=== PATIENT | male | born 1965 | race Caucasian/White ===

== ENCOUNTER 2018-01-31 11:23 | Inpatient (IN) | payer BC, OTHER ==
[2018-01-31 12:26] LABS: BASO % 0.5 % (0-2.0); EOS % 0.5 % (0-4.5); HEMATOCRIT 43.6 % (35.4-49); HEMOGLOBIN 14.4 GM/dL (11.7-16.9); LYMPH % 13.8 % (8-40); MCH 28.8 pg (25.7-33.7); MEAN CELL VOLUME 87.4 fl (80-96); MONO % 3.3 % (3.8-10.2); NEUT % 81.9 % (42.8-82.8); PLATELET COUNT 209 K/MM3 (134-434); RBC 4.99 M/mm3 (4.00-5.60); RDW 13.4 % (11.9-15.9); WHITE BLOOD COUNT 7.6 K/mm3 (4.0-10.0)
--- NOTE | 2018-01-31 12:31 | PDOC ---
History of Present Illness - General Chief Complaint: Syncope/Near Syncope Stated Complaint: NEAR SYNCOPE/SYNCOPE Time Seen by Provider: 01/31/18 11:54 History Source: Patient Exam Limitations: No Limitations - History of Present Illness Initial Comments: 01/31/18 12:31 53 yo M with a hx of aortic ascending aneurysm (stable per Dr. Estevez; 4.1- 4.2cm; last surveillance Dec 2017) and spinal stenosis (corrective surgery lumbar 4 years ago) presents to the emergency department s/p syncopal episode at 8:15 am. Per the patient's at bedside, he was fine in the morning got up to use bathroom walked back and LOC event falling forward into the bed. He was out for 1 minute and looked pale without head trauma. Per the patient, he denies palpitations, chest pain, nausea, vomiting, headaches, visual changes, and abdominal pain prior to the syncopal episodes and "possibly lightheaded". The patient's denies seizure like tremors. After sitting him up in bed, he syncopized 30 minutes later and had another syncopal event in bed, totaling 3 today. The patient is followed by Dr. Estevez for his aortic aneurysm. He states he hasn't syncopized since 2013 when he was initially diagnosed with the aortic aneurysm. Denies the following: fevers, SOB, dysuria, hematuria, diarrhea , hematochezia, and leg pain/swelling. No recent travels, hx of PE/DVT, recent immobilizations, recent surgeries, and use of hormones. Past History - Past Medical History Allergies/Adverse Reactions: Allergies Allergy/AdvReac Type Severity Reaction Status Date / Time shellfish derived Allergy Severe Difficulty Verified 01/31/18 22:22 Breathing Home Medications: Ambulatory Orders Metoprolol Succinate [Toprol XL -] 25 mg PO DAILY #0 tab.sr.24h 01/25/12 COPD: No Other medical history: enlarged aorta - Surgical History Cholecystectomy: Yes - Immunization History Immunization Up to Date: Yes - Suicide/Smoking/Psychosocial Hx Smoking Status: No Smoking History: Never smoked Number of Cigarettes Smoked Daily: 0 Hx Alcohol Use: No Drug/Substance Use Hx: No Review of Systems - Review of Systems Able to Perform ROS?: Yes Is the patient limited German proficient: No Constitutional: Yes: Weakness. No: Chills, Diaphoresis, Fever HEENTM: No: Blurred Vision, Recent change in vision, Ear Pain, Nose Pain, Throat Pain, Mouth Pain Respiratory: No: Cough, Shortness of Breath, Hemoptysis Cardiac (ROS): Yes: Lightheadedness. No: Chest Pain, Palpitations, Syncope, Chest Tightness ABD/GI: Yes: Nausea, Vomiting. No: Constipated, Diarrhea, Poor Appetite, Poor Fluid Intake, Rectal Bleeding, Tarry Stools : No: Burning, Dysuria, Hematuria, Urgency Musculoskeletal: No: Back Pain, Joint Pain, Neck Pain Integumentary: No: Erythema, Lumps, Pallor, Pruritus Neurological: No: Headache, Numbness, Tremors, Weakness, Ataxia, Dizziness Psychiatric: No: Frequent Crying Endocrine: No: Unexplained Weight Loss Hematologic/Lymphatic: No: Anemia *Physical Exam - Vital Signs Last Vital Signs Temp Pulse Resp BP Pulse Ox 97.3 F L 70 18 123/72 97 01/31/18 11:32 01/31/18 11:32 01/31/18 11:32 01/31/18 11:32 01/31/18 11:32 - Physical Exam General Appearance: Yes: Nourished, Appropriately Dressed. No: Apparent Distress, Intoxicated HEENT: positive: EOMI, BOLA, Normal Voice, Symmetrical, Hearing Grossly Normal. negative: Pale Conjunctivae, Scleral Icterus (R), Scleral Icterus (L), Muffled /Hoarse voice, Nasal Congestion, Sinus Tenderness, Excessive drooling Neck: positive: Trachea midline. negative: Tender, Lymphadenopathy (R), Lymphadenopathy (L), Tender lateral, Tender midline Respiratory/Chest: positive: Lungs Clear, Normal Breath Sounds. negative: Chest Tender, Respiratory Distress, Accessory Muscle Use, Crackles, Rales, Rhonchi, Stridor, Wheezing Cardiovascular: positive: Regular Rhythm, Regular Rate, S1, S2. negative: Systolic Murmur Gastrointestinal/Abdominal: positive: Normal Bowel Sounds, Flat, Soft. negative : Tender, Distended, Rebound Lymphatic: negative: Adenopathy Musculoskeletal: positive: Normal Inspection. negative: CVA Tenderness, Vertebral Tenderness Extremity: positive: Normal Capillary Refill, Normal Inspection, Normal Range of Motion. negative: Tender Integumentary: positive: Normal Color, Dry, Warm. negative: Clammy, Diaphoresis , Rash, Swelling Neurologic: positive: blankmaker II-XII NML intact, Fully Oriented, Alert, Normal Mood/ Affect, Normal Response, Motor Strength 5/5. negative: EOM Palsy, Facial Droop , Sensory Deficit Moderate Sedation - Procedure Monitoring Vital Signs: Procedure Monitoring Vital Signs Temperature 97.3 F L 01/31/18 11:32 Pulse Rate 70 01/31/18 11:32 Respiratory Rate 18 01/31/18 11:32 Blood Pressure 123/72 01/31/18 11:32 O2 Sat by Pulse Oximetry (%) 97 01/31/18 11:32 Heart Score/ECG Review - ECG Intrepretation Comment:: 02/01/18 16:[address] elevations or depressions noted on EKG. no arrhythmia. ventricular rate is 70 bpm. ED Treatment Course - LABORATORY CBC & Chemistry Diagram: 02/02/18 06:30 02/02/18 06:30 Medical Decision Making - Medical Decision Making 53 yo M with a hx of aortic ascending aneurysm (stable per Dr. Estevez; 4.1- 4.2cm; last surveillance Dec 2017) and spinal stenosis (corrective surgery lumbar 4 years ago) presents to the emergency department s/p syncopal episode at 8:15 am Initial vitals: Initial Vital Signs Temp Pulse Resp BP Pulse Ox 97.3 F L 70 18 123/72 97 01/31/18 11:32 01/31/18 11:32 01/31/18 11:32 01/31/18 11:32 01/31/18 11:32 work up: syncope (vasovagal vs neurological (Seizure vs TIA vs CVA vs mass effect?) vs cardiogenic (arrhythmia) vs vascular (carotid stenosis vs hypovolemia 2/2 nausea ). CTA will be ordered to assess status of the aortic aneurysm. last time he has syncopal episodes was 2 years ago when he had his initial syncope event that ultimately led to the diagnosis of the aortic aneurysm. Laboratory Tests 01/31/18 01/31/18 01/31/18 12:17 12:17 15:13 WBC 7.6 RBC 4.99 Hgb 14.4 Hct 43.6 MCV 87.4 MCH 28.8 MCHC 33.0 RDW 13.4 Plt Count 209 MPV 8.0 Absolute Neuts (auto) 6.2 Neutrophils % 81.9 D Lymphocytes % 13.8 D Monocytes % 3.3 L Eosinophils % 0.5 Basophils % 0.5 Nucleated RBC % 0 Sodium 140 Potassium 4.5 Chloride 106 Carbon Dioxide 26 Anion Gap 7 L BUN 13 Creatinine 0.8 Creat Clearance w eGFR > 60 POC Glucometer [id number] Random Glucose 144 H Calcium 8.1 L Total Bilirubin 0.4 AST 19 ALT 23 Alkaline Phosphatase 62 Troponin I < 0.02 Total Protein 6.5 Albumin 3.7 TSH 1.20 Free T4 0.91 CTA of the chest shows no evidence of aortic dissection or aneurysm. Mild dilatation of the main pulmonary artery trunk with no evidence of pulmonary artery emboli. The patient was having nausea and vomiting in the department and given 1 L of NS and 4 mg of zofran. The patient had a syncopal event while in the department. he stated he felt lightheaded while sitting up and when he laid down he had a LOC. He awoke within 1 minute with diaphoresis and nausea and vomiting. he was mentating A&O x3 and was able to move all extremities x4 spontaneously. In addition, he did not have shaking when he had the LOC. glucose meter did not show hypoglycemia and repeat EKG was unchanged from previous. given unclear etiology of his syncopal events (neurogenic vs cardiogenic?) will admit for further work up. Dispo: Admit *DC/Admit/Observation/Transfer Diagnosis at time of Disposition: Syncope Qualifiers: Syncope type: unspecified Qualified Code(s): R55 - Syncope and collapse - Referrals - Patient Instructions - Post Discharge Activity
[2018-01-31 12:54] LABS: ALBUMIN 3.7 g/dl (3.4-5.0); ALK PHOS 62 U/L (45-117); ANION GAP 7 MMOL/L (8-16); BILIRUBIN,TOTAL 0.4 mg/dL (0.2-1); BLOOD UREA NITROGEN 13 mg/dL (7-18); CALCIUM 8.1 mg/dL (8.5-10.1); CHLORIDE 106 mmol/L (98-107); CO2 26 mmol/L (21-32); CREATININE 0.8 mg/dL (0.55-1.3); GLUCOSE,RANDOM 144 mg/dL (74-106); POTASSIUM 4.5 mmol/L (3.5-5.1); SGOT/AST 19 U/L (15-37); SGPT/ALT 23 U/L (13-61); SODIUM 140 mmol/L (136-145); TOT PROT 6.5 g/dl (6.4-8.2)
[2018-01-31] MEDS ORDERED: ONDANSETRON 4 MG/2 ML VIAL IVPUSH ONE ×2 (12:55→15:20)
[2018-01-31] MEDS ORDERED: SODIUM CHLORIDE 1,000 ML IV STA (12:55)
[2018-01-31] MEDS ORDERED: ONDANSETRON 4 MG/2 ML VIAL ONE ×2 (13:14→15:21)
--- NOTE | 2018-01-31 14:00 | EKG ---
Test Reason : Blood Pressure : / mmHG Vent. Rate : 070 BPM Atrial Rate : 070 BPM P-R Int : 188 ms QRS Dur : 106 ms QT Int : 406 ms P-R-T Axes : 059 046 032 degrees QTc Int : 438 ms NORMAL SINUS RHYTHM NORMAL ECG WHEN COMPARED WITH ECG OF 23-JAN-2012 08:22, NO SIGNIFICANT CHANGE WAS FOUND Confirmed by JOHNSON SPRINGER MD ([id number]) on 01/31/2018 1:59:58 PM Referred By: Confirmed By:JOHNSON SPRINGER MD
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
[2018-01-31] MEDS ORDERED: SODIUM CHLORIDE 500 ML IV STA (15:20)
--- NOTE | 2018-01-31 15:58 | ECHO ---
Name: MAC LA Exam:Adult Echocardiogram Study Date: 01/31/2018 03:22 PM Age: 53 yrs Reason For Study: SYNCOPE Height: 69 in Weight: 190 lb BSA: 2.0 m2 MMode/2D Measurements & Calculations IVSd: 0.94 cm Ao root diam: 3.8 cm LVIDd: 5.5 cm LA dimension: 3.5 cm LVIDs: 3.4 cm LVPWd: 1.0 cm EDV(Teich): 145.3 ml LVOT diam: 2.6 cm ESV(Teich): 47.0 ml TAPSE: 1.5 cm RV S Antonio: 13.6 cm/sec Doppler Measurements & Calculations MV E max antonio: 76.6 cm/sec Med Peak E' Antonio: 11.2 cm/sec MV A max antonio: 74.2 cm/sec Med E/e': 6.8 MV E/A: 1.0 Lat Peak E' Antonio: 10.8 cm/sec Lat E/e': 7.1 Procedure A complete two-dimensional transthoracic echocardiogram was performed (2D, M-mode, Doppler and color flow Doppler). Left Ventricle The left ventricular size, thickness and function are normal. The left ventricular ejection fraction is normal. Ejection Fraction = 60-65%. The left ventricular wall motion is normal. Right Ventricle The right ventricle is normal in size and function. Atria Normal left and right atrial size and function. The interatrial septum is intact with no evidence for an atrial septal defect. Mitral Valve There is no mitral regurgitation noted. Tricuspid Valve There is trace tricuspid regurgitation. Aortic Valve The aortic valve is trileaflet. No hemodynamically significant valvular aortic stenosis. No aortic regurgitation is present. Pulmonic Valve There is no pulmonic valvular regurgitation. Great Vessels Mild aortic root dilatation. Pericardium/Pleura There is no pericardial effusion. Interpretation Summary The left ventricular size, thickness and function are normal The right ventricle is normal in size and function. There is trace tricuspid regurgitation. Mild aortic root dilatation. MD Merritt Reynolds 01/31/2018 03:58 PM
--- NOTE | 2018-01-31 17:19 | CON.NEURO ---
Consult Consult Specialty:: Rickie Referred by:: ER - History of Present Illness History of Present Illness: 53-year-old man originally from [facility] with present medical history significant for Osteoarthritis Chronic low back pain Spinal stenosis Aortic aneurysm under the care of cardiology Patient was at his usual status of health until yesterday when he was at home and he describes sudden onset of feeling dizzyWith loss of consciousness no seizure-like activity no eyes rolled back no tongue biting no urinary incontinence patient was able to come back patient had another episode before the ambulance was called in the emergency room patient was evaluated stepwise CAT scan of the head was done. Patient was neurologically stable with no focality patient had another episode in the emergency room. Patient did not need any benzodiazepine to come around. No chest pain or palpitation. Mild headache after mild postictal confusion. No other associated symptoms of cranial nerve findings. There is no family history of seizure disorders no recent travel there is no head trauma. - History Source History Provided By: Patient Limitations to Obtaining History: No Limitations - Alcohol/Substance Use Hx Alcohol Use: No - Smoking History Smoking history: Never smoked Aproximately how many cigarettes per day: 0 Home Medications - Allergies Allergies/Adverse Reactions: Allergies Allergy/AdvReac Type Severity Reaction Status Date / Time shellfish derived Allergy Severe Difficulty Verified 01/31/18 22:22 Breathing - Home Medications Home Medications: Ambulatory Orders Metoprolol Succinate [Toprol XL -] 25 mg PO DAILY #0 tab.sr.24h 01/25/12 Family Disease History - Family Disease History Family History: Denies (no seizure) Review of Systems - Review of Systems Constitutional: reports: No Symptoms Eyes: reports: No Symptoms HENT: reports: No Symptoms Neurological: reports: No Symptoms Physical Exam-Neuro Vital Signs: Vital Signs Temperature 97.3 F L 01/31/18 11:32 Pulse Rate 66 01/31/18 13:12 Respiratory Rate 17 01/31/18 13:12 Blood Pressure 119/68 01/31/18 13:12 O2 Sat by Pulse Oximetry (%) 98 01/31/18 13:12 Labs: CBC, BMP 01/31/18 12:17 01/31/18 12:17 - Neuro Exam Level Of Consciousness: Yes: Oriented to Person, Oriented to Place, Oriented to Time Eyes: Yes: PERRLA Speech: WNL Dominant Hand: Right Cranial Nerves II-XII Intact: Yes Gag: Present DTR's: 1+ Left Bicep, 1+ Right Bicep, 1+ Left Brachioradialis, 1+ Right Brachioradialis Response to light touch: Normal Response to pain prick: Normal Response to temperature: Normal Response to vibration: Normal Motor Strength: 3/5: Left Arm, Right Arm, Left Leg, Right Leg Gait: Deferred Imaging - Results Cat Scan: Image Reviewed Problem List - Problems (1) Syncope Assessment/Plan: the context of the syncopal event speaks very highly of either vasovagal or cardiac arrhythmia to be determined doubt this is a seizure given the new associated symptoms and doubt this is TIA giving no cranial nerve findings. Neurological examination is within the normal. Neurological differential diagnoses 1 syncope most probably vasovagal repeated questionable source. #2 rule out cardiac arrhythmia. 1. Agree to plan to admit to monitor. 2. Seizure precautions. 3. MRI of the brain with no contrast. 4. EEG. 5. No antiseizure medication. 6. Follow-up with cardiology regarding the Holter monitor. Thank you very much for letting me to be part of this patient neurological examination Code(s): R55 - SYNCOPE AND COLLAPSE Qualifiers: Syncope type: unspecified Qualified Code(s): R55 - Syncope and collapse
[2018-01-31] MEDS ORDERED: ACETAMINOPHEN 325 MG TABLET (FP) PO PRN (19:44)
[2018-01-31] MEDS ORDERED: LACTATED RINGERS SOLUTION 1000 ML INFUS.BAG IV ONE (20:00)
--- NOTE | 2018-01-31 22:23 | HP ---
Admitting History and Physical - Admission Chief Complaint: syncope x 3 episodes History of Present Illness: 53 year old male, with a significant PMH of aortic aneurysm, spinal stenosis s/ p laminectomy?, presents to the emergency department for evaluation after experiencing three syncopal episodes at home. Mr Helms reports being in his usual state of health, until this morning when he was looking down at "some papers" and began to feel dizzy. He walked towards his bed and had a syncopal episode, witnessed by his , landing face down on his bed. He regained consciousness after ~ 20 seconds. Patient decided to get into bed and while sitting up 30min, he experienced another syncopal episode, followed by a third shortly thereafter. Pt reports over the last 15months he has been experiencing malaise, night sweats and was concerned due to his brother passing from lymphoma. He underwent an extensive w/u including bone marrow biopsy, all of which were negative. His symptoms have improved slightly over the last few months, but he does continues to experience intermittent night sweats and malaise. He denies CP/SOB/palpitations, + nausea and dizziness. Pt has never experienced these symptoms prior. He currently takes toprol 25mg daily to control BP and HR for his aortic dissection, which he stopped two days ago due to the holidays and not wanting to take meds during this time period. He Denies any new medications, recent illness or infections. His most recent internation travel was oct 2017 to [place]. In ED his vitals were stable. His EKG was nonischemic her troponin was negative a CTA of his chest abdomen pelvis demonstrates no acute or active dissection or aneurysm. Given multitude of syncopal events without clear vagal etiology observe for cardiac and neuro consultation, to determine further management. History Source: Patient, Significant Other Limitations to Obtaining History: No Limitations - Past Medical History FIELD STAFF: Yes: Peripheral Neuropathy, Syncope Cardiovascular: Yes: Aneurysm Musculoskeletal: Yes: Chronic low back pain - Past Surgical History Past Surgical History: Yes: Cholecystectomy, Colonoscopy, Laminectomy Additional Past Surgical History: right foot drop correction Left ACL repair Right rotator cuff repair perianal nerve repair - Smoking History Smoking history: Never smoked Have you smoked in the past 12 months: No Aproximately how many cigarettes per day: 0 - Alcohol/Substance Use Hx Alcohol Use: No History of Substance Use: reports: None - Social History Usual Living Arrangement: Yes: With Spouse, With Child ADL: Independent Occupation: partially retired History of Recent Travel: Yes ([place] october 2017) Home Medications - Allergies Allergies/Adverse Reactions: Allergies Allergy/AdvReac Type Severity Reaction Status Date / Time shellfish derived Allergy Severe Difficulty Verified 01/31/18 22:22 Breathing - Home Medications Home Medications: Ambulatory Orders Metoprolol Succinate [Toprol XL -] 25 mg PO DAILY #0 tab.sr.24h 01/25/12 Family Disease History - Family Disease History Family Disease History: Other: Father ( (72) lung cancer 2/2 tobacco use ), Mother (Alive ( 75) Polymyalgia rheumatica, hypothyroidism) Review of Systems - Review of Systems Constitutional: reports: Malaise, Night Sweats, Weakness Musculoskeletal: reports: Decreased ROM, Muscle Weakness Neurological: reports: Parasthesia, Weakness Physical Examination Vital Signs: Vital Signs Temperature 97.9 F 01/31/18 21:24 Pulse Rate 73 01/31/18 21:24 Respiratory Rate 18 01/31/18 21:24 Blood Pressure 115/61 01/31/18 21:24 O2 Sat by Pulse Oximetry (%) 96 01/31/18 21:24 Constitutional: Yes: Well Nourished, No Distress, Calm Eyes: Yes: Conjunctiva Clear, EOM Intact, PERRL HENT: Yes: Atraumatic, Normocephalic Neck: Yes: Supple, Trachea Midline Cardiovascular: Yes: Regular Rate and Rhythm Respiratory: Yes: Regular, CTA Bilaterally Gastrointestinal: Yes: Normal Bowel Sounds, Soft ...Rectal Exam: Yes: Deferred Musculoskeletal: Yes: Back Pain, Muscle Pain Extremities: Yes: WNL Edema: No Peripheral Pulses WNL: Yes Peripheral Pulses: Left Radial: 2+, Right Radial: 2+, Left Doralis Pedis: 2+, Right Dorsalis Pedis: 2+ Integumentary: Yes: WNL Neurological: Yes: Alert, Oriented ...Motor Strength: LLE (decreased 3/5), RLE (decreased 3/5) Psychiatric: Yes: Alert, Oriented Labs: CBC, BMP 01/31/18 12:17 01/31/18 12:17 Imaging - Results X-ray: Report Reviewed (CXR 01/31: no acute pathology) Cat Scan: Report Reviewed (Head CT 01/31: Negative exam), Other (CTA chest and abdomen 01/31/2018 Impression: no evidence of aortic dissection or aneurysm. Main dilatation of the main pulmonary artery trunk with no evidence of pulmonary artery emboli. s/p cholecystectomy, mild splenomegaly.) Ultrasound: Report Reviewed (carotid doppler 01/31: Vertebral arteries appear patent, no evidence of high grade carotid artery stenois) EKG: Report Reviewed (EKG 01/31/2018 NSR. VR 70bpm, ZINA 188ms, QTc 438ms, QRS 106ms.) Problem List - Problems (1) Prophylactic measure Assessment/Plan: bed rest overnight senna and colace bowel regimen heparin SC BID DISPO: Full code Code(s): Z29.9 - ENCOUNTER FOR PROPHYLACTIC MEASURES, UNSPECIFIED (2) Syncope Assessment/Plan: neuro consulted neuro check [id number] continuous telemetry cardiology following echo wnl. CTA no dissection or aneurysm Code(s): R55 - SYNCOPE AND COLLAPSE Qualifiers: Syncope type: unspecified Qualified Code(s): R55 - Syncope and collapse Visit type - Emergency Visit Emergency Visit: Yes ED Registration Date: 01/31/18 Care time: The patient presented to the Emergency Department on the above date and was hospitalized for further evaluation of their emergent condition. - New Patient This patient is new to me today: Yes Date on this admission: 01/31/18 - Critical Care Critical Care patient: No
[2018-01-31] MEDS: SENNOSIDES 8.6MG TABLET (FP) PO SCH (22:50)
[2018-01-31] MEDS: DOCUSATE SODIUM 100 MG CAPSULE (FP) PO SCH (22:51)
[2018-01-31] MEDS: HEPARIN NA (PORCINE) 5,000 UNITS/ML 1ML VIAL SQ SCH (22:55)
[2018-01-31 23:48] VITALS: BMI 29.0
[2018-02-01 07:00] LABS: BASO % 0.3 % (0-2.0); EOS % 1.6 % (0-4.5); HEMOGLOBIN 14.5 GM/dL (11.7-16.9); LYMPH % 27.1 % (8-40); MCH 29.2 pg (25.7-33.7); MCHC 33.6 g/dl (32.0-35.9); MEAN CELL VOLUME 86.9 fl (80-96); MEAN PLT VOLUME 8.2 fl (7.5-11.1); MONO % 7.3 % (3.8-10.2); NEUT % 63.7 % (42.8-82.8); PLATELET COUNT 226 K/MM3 (134-434); RBC 4.95 M/mm3 (4.00-5.60); RDW 13.7 % (11.9-15.9); WHITE BLOOD COUNT 8.7 K/mm3 (4.0-10.0)
[2018-02-01 08:07] LABS: ANION GAP 6 MMOL/L (8-16); BLOOD UREA NITROGEN 11 mg/dL (7-18); CALCIUM 8.3 mg/dL (8.5-10.1); CHLORIDE 107 mmol/L (98-107); CHOLESTEROL 194 mg/dL (50-200); CO2 28 mmol/L (21-32); CREATININE 0.8 mg/dL (0.55-1.3); GLUCOSE,RANDOM 87 mg/dL (74-106); HDL CHOLESTEROL 41 mg/dL (40-60); MAGNESIUM 2.1 mg/dL (1.8-2.4); POTASSIUM 4.1 mmol/L (3.5-5.1); SODIUM 141 mmol/L (136-145); TRIGLYCERIDES 125 mg/dL (0-150)
--- NOTE | 2018-02-01 09:02 | CON.CARD ---
Cardiology Consult (text) - Consultation Consultation Note: Consult Dictated IMP: Syncope vs Seizure Hx Mildly dilated ascending aorta REC: 1. Tele 2. Neuro eval Will follow.
--- NOTE | 2018-02-01 09:55 | CONS ---
CARDIOLOGY CONSULTATION DATE OF CONSULTATION: DATE OF DICTATION: 02/01/2018 REASON FOR CONSULTATION: The consultation is requested by Dr. Roque for syncope. HISTORY OF PRESENT ILLNESS: The patient is my office patient. He is a 53-year-old male with a history of stable, mild thoracic aortic aneurysm of 4.2 cm, nonobstructive coronary disease, who presented to the ER for evaluation of 3 episodes of loss of consciousness which occurred at home. He denied antecedent chest pain, shortness of breath, palpitations, PND, orthopnea. This is his first episode. He denies recent air travel. Denies recent viral illnesses, cough, fever, diarrhea or volume depletion. He did not lose continence. PAST MEDICAL HISTORY: Is as above. ALLERGIES: SHELLFISH. ACTIVE MEDICATIONS: Include Tylenol 650 p.o. q.6 p.r.n., Colace 100 mg p.o. b.i.d., subcutaneous heparin for DVT prophylaxis, and senna. At home, he was also taking Toprol XL of 25 mg daily for his ascending aortic aneurysm and blood pressure control. FAMILY HISTORY: Noncontributory. SOCIAL HISTORY: He is a nonsmoker. PHYSICAL EXAMINATION: Vital Signs: Afebrile. Alert and oriented. Temperature 98.1, blood pressure 123/61. Initial blood pressure on presentation 123/72. Oxygen saturation is 97 on room air. Eyes: He is anicteric. Neck: No bruits. Heart: S1-2, regular. No murmurs. Chest: Clear. Abdomen: Soft. Nontender. Extremities: No edema. Neurologic: Grossly nonfocal. Telemetry thus far unremarkable. His electrocardiogram normal sinus rhythm at 70 beats per minute, QTc 438, SC interval 188. LABORATORIES: CBC was normal. Basic metabolic panel was normal. Troponin was negative x4 sets. Head CT was unremarkable. Carotid duplex was unremarkable. Chest and abdomen CTA showed mild dilatation of the ascending aorta 3.8 cm with no dissection and no evidence of pulmonary embolism. Echocardiogram performed yesterday also showed normal LV function, and mildly dilated ascending aorta measuring 3.8 cm, otherwise ejection fraction 60% to 65% with normal RV size and function. IMPRESSION: Syncope versus seizure. RECOMMENDATIONS: 1. Observation on telemetry. 2. Neurology evaluation. 3. Will decrease Toprol to 12.5 mg daily while observing on telemetry. Further recommendations pending above. BLAZE ROJO M.D. [id number]
[2018-02-01] MEDS: metoPROLOL SUCCINATE 25 MG TAB.SR.24H (FP) PO SCH (10:00)
[2018-02-01] MEDS: DOCUSATE SODIUM 100 MG CAPSULE (FP) PO SCH ×2 (10:01→22:12)
[2018-02-01] MEDS: HEPARIN NA (PORCINE) 5,000 UNITS/ML 1ML VIAL SQ SCH ×2 (10:01→22:12)
--- NOTE | 2018-02-01 16:30 | PN ---
Physical Exam: SUBJECTIVE: Patient seen and examined at the bedside. Patient concerned over syncopal episodes and fear of having another episode. States he had 3 syncopal episodes at home with LOC. Also had one down in the ED on admission. Verbalizes feelings of dizziness with standing. Last time patient felt this way was when he was diagnosed with Lymes disease, 8 years ago. He required IV doxyclinie infusions at at time for apx 3 months. OBJECTIVE: vitals pre and post w/o change. continue to repeat and monitor patient had EEG today, MRI of head ordered and pending lyme titer pending Vital Signs Period Temp Pulse Resp BP Sys/Baird Pulse Ox Last 24 Hr 97.9 F-98.3 F 64-76 18-20 107-135/61-70 96-97 GENERAL: The patient is awake, alert, and fully oriented, in no acute distress. HEAD: Normal with no signs of trauma. EYES: PERRL, extraocular movements intact, sclera anicteric, conjunctiva clear. No ptosis. ENT: Ears normal, nares patent, oropharynx clear without exudates, moist mucous membranes. NECK: Trachea midline, full range of motion, supple. LUNGS: Breath sounds equal, clear to auscultation bilaterally, no wheezes, no crackles HEART: Regular rate and rhythm, nsr ABDOMEN: Soft, nontender, nondistended, normoactive bowel sounds EXTREMITIES: 2+ pulses, warm, well-perfused, no edema. NEUROLOGICAL:Normal speech, gait not observed. PSYCH: Normal mood, normal affect. SKIN: Warm, dry, normal turgor, no rashes or lesions noted Laboratory Results - last 24 hr 01/31/18 01/31/18 02/01/18 19:46 20:15 05:30 WBC 8.7 RBC 4.95 Hgb 14.5 Hct 43.0 MCV 86.9 MCH 29.2 MCHC 33.6 RDW 13.7 Plt Count 226 MPV 8.2 Absolute Neuts (auto) 5.5 Neutrophils % 63.7 D Lymphocytes % 27.1 D Monocytes % 7.3 D Eosinophils % 1.6 D Basophils % 0.3 Nucleated RBC % 0 Sodium Potassium Chloride Carbon Dioxide Anion Gap BUN Creatinine Creat Clearance w eGFR Random Glucose Hemoglobin A1c % Calcium Magnesium Creatine Kinase 78 75 Troponin I < 0.02 < 0.02 Triglycerides Cholesterol Total LDL Cholesterol HDL Cholesterol Rheumatoid Factor 02/01/18 02/01/18 02/01/18 05:30 05:30 05:30 WBC RBC Hgb Hct MCV MCH MCHC RDW Plt Count MPV Absolute Neuts (auto) Neutrophils % Lymphocytes % Monocytes % Eosinophils % Basophils % Nucleated RBC % Sodium 141 Potassium 4.1 Chloride 107 Carbon Dioxide 28 Anion Gap 6 L BUN 11 Creatinine 0.8 Creat Clearance w eGFR > 60 Random Glucose 87 Hemoglobin A1c % 5.3 Calcium 8.3 L Magnesium 2.1 Creatine Kinase 70 Troponin I < 0.02 Triglycerides 125 Cholesterol 194 Total LDL Cholesterol 130 H HDL Cholesterol 41 Rheumatoid Factor < 10.0 Active Medications Generic Name Dose Route Start Last Admin Trade Name Freq PRN Reason Stop Dose Admin Acetaminophen 650 mg 01/31/18 19:44 01/31/18 22:51 Tylenol - PO 650 mg Q6H PRN Administration FEVER Docusate Sodium 100 mg 01/31/18 22:00 02/01/18 10:01 Colace - PO 100 mg BID JOHNSON Administration Heparin Sodium (Porcine) 5,000 unit 01/31/18 22:00 02/01/18 10:01 Heparin - SQ 5,000 unit BID JOHNSON Administration Metoprolol Succinate 12.5 mg 02/01/18 10:00 02/01/18 10:00 Toprol Xl - PO 12.5 mg DAILY JOHNSON Administration Senna 2 tab 01/31/18 22:00 01/31/18 22:50 Senna - PO 2 tab HS JOHNSON Administration ASSESSMENT/PLAN: Patient is a 53 year old male, with a significant PMH of aortic aneurysm, spinal stenosis s/p laminectomy and 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 He presents to the ED on 01/31/2018 after he experienced three syncopal episodes at home with LOC loss. He also had another syncopal episode in the ED when speaking with his family, pt noted to have a syncopal episode in the hospital bed by ER staff. In ED his EKG was nonischemic, troponin was negative and a CTA of his chest abdomen pelvis demonstrates no acute or active dissection or aneurysm. Given multitude of syncopal events without clear vagal etiology observe for cardiac and neuro consultation, to determine further management. imaging done between 01/31-02/01/2018: echo: mild mr, mild aortic dilatation carotid doppler: negative brain mri: negative EEG: pending abd cta: no evidence of aortic dissection or aneurysm. mild dilatation of the main pulm. artery. no evidence of pulm. artery emboli. Neuro: Syncope and collapse Unknown etiology Head ct and brain mri negative troponins negative to date EEG pending Echo shows only mild mr and mild aortic dilatation orthostatics normal No changes on heart monitoring Lymes titers pending hmga1c stable at 5.3 multiple imaging noted above negative for acute process Card: Aortic aneurysm Followed by cardiology outpatient with routine 6 month screenings fen no ivf,tolerating PO monitor electrolytes low salt diet prophy ambulatory full code Visit type - Emergency Visit Emergency Visit: Yes ED Registration Date: 01/31/18 Care time: The patient presented to the Emergency Department on the above date and was hospitalized for further evaluation of their emergent condition. - New Patient This patient is new to me today: Yes Date on this admission: 02/01/18 - Critical Care Critical Care patient: No - Discharge Referral Referred to [facility] No
--- NOTE | 2018-02-01 19:09 | EKG ---
Test Reason : Blood Pressure : / mmHG Vent. Rate : 063 BPM Atrial Rate : 063 BPM P-R Int : 178 ms QRS Dur : 102 ms QT Int : 396 ms P-R-T Axes : 060 029 021 degrees QTc Int : 405 ms NORMAL SINUS RHYTHM NORMAL ECG WHEN COMPARED WITH ECG OF 31-JAN-2018 11:49, NO SIGNIFICANT CHANGE WAS FOUND Confirmed by DEANNA CUMMINS MD ([id number]) on 02/01/2018 7:08:59 PM Referred By: TORY CELIS Confirmed By:DEANNA CUMMINS MD
--- NOTE | 2018-02-01 19:14 | EKG ---
Test Reason : Blood Pressure : / mmHG Vent. Rate : 072 BPM Atrial Rate : 072 BPM P-R Int : 184 ms QRS Dur : 108 ms QT Int : 398 ms P-R-T Axes : 068 046 010 degrees QTc Int : 435 ms POOR DATA QUALITY, INTERPRETATION MAY BE ADVERSELY AFFECTED NORMAL SINUS RHYTHM NORMAL ECG WHEN COMPARED WITH ECG OF 31-JAN-2018 11:49, NO SIGNIFICANT CHANGE WAS FOUND Confirmed by PLACIDO MIN, DEANNA ([id number]) on 02/01/2018 7:13:57 PM Referred By: Confirmed By:DEANNA CUMMINS MD
[2018-02-01] MEDS: SENNOSIDES 8.6MG TABLET (FP) PO SCH (22:12)
[2018-02-02 08:01] LABS: BASO % 0.7 % (0-2.0); EOS % 4.2 % (0-4.5); HEMATOCRIT 39.8 % (35.4-49); HEMOGLOBIN 14.2 GM/dL (11.7-16.9); LYMPH % 34.9 % (8-40); MCH 30.9 pg (25.7-33.7); MCHC 35.7 g/dl (32.0-35.9); MEAN CELL VOLUME 86.5 fl (80-96); MEAN PLT VOLUME 8.5 fl (7.5-11.1); MONO % 7.3 % (3.8-10.2); NEUT % 52.9 % (42.8-82.8); PLATELET COUNT 211 K/MM3 (134-434); WHITE BLOOD COUNT 6.3 K/mm3 (4.0-10.0)
[2018-02-02 09:42] LABS: ALBUMIN 3.5 g/dl (3.4-5.0); ANION GAP 8 MMOL/L (8-16); BILIRUBIN,TOTAL 0.3 mg/dL (0.2-1); BLOOD UREA NITROGEN 15 mg/dL (7-18); CALCIUM 7.9 mg/dL (8.5-10.1); CHLORIDE 107 mmol/L (98-107); CO2 27 mmol/L (21-32); CREATININE 0.9 mg/dL (0.55-1.3); GLUCOSE,RANDOM 86 mg/dL (74-106); MAGNESIUM 2.1 mg/dL (1.8-2.4); POTASSIUM 3.9 mmol/L (3.5-5.1); SGOT/AST 22 U/L (15-37); SODIUM 142 mmol/L (136-145); TOT PROT 5.9 g/dl (6.4-8.2)
[2018-02-02 09:43] LABS: ALK PHOS 63 U/L (45-117); SGPT/ALT 44 U/L (13-61)
[2018-02-02] MEDS: metoPROLOL SUCCINATE 25 MG TAB.SR.24H (FP) PO SCH (10:48)
[2018-02-02] MEDS: DOCUSATE SODIUM 100 MG CAPSULE (FP) PO SCH ×2 (10:48→22:04)
[2018-02-02] MEDS: HEPARIN NA (PORCINE) 5,000 UNITS/ML 1ML VIAL SQ SCH ×2 (10:49→22:03)
--- NOTE | 2018-02-02 12:22 | CON.CARD ---
Cardiology Consult (text) - Consultation Consultation Note: Subjective: --No events overnight --Denies any lh, dizziness, chest pain or palpitations Objective: Vital Signs 02/02/18 02/02/18 02/02/18 06:00 09:00 10:45 Temperature 97.7 F Pulse Rate 61 Pulse Rate [ 73 Right side Sitting] Pulse Rate [ 74 Right side Standing] Pulse Rate [ 68 Right side Supine] Respiratory 18 16 Rate Blood Pressure 103/56 L Blood Pressure 127/73 [Right side Sitting] Blood Pressure 127/65 [Right side Standing] Blood Pressure 132/67 [Right side Supine] O2 Sat by Pulse 98 Oximetry (%) Gen: well appearing male sitting upright in NAD HEENT: NC/AT. OP Clear, MMM Cardiac: S1/S2 no murmurs Pulm: clear breath sounds bilaterally Ext: WWP. No edema Labs: reviewed. Active Medications Acetaminophen (Tylenol -) 650 mg PO Q6H PRN PRN Reason: FEVER Last Admin: 01/31/18 22:51 Dose: 650 mg Docusate Sodium (Colace -) 100 mg PO BID [facility] Last Admin: 02/02/18 10:48 Dose: 100 mg Heparin Sodium (Porcine) (Heparin -) 5,000 unit SQ BID [facility] Last Admin: 02/02/18 10:49 Dose: 5,000 unit Metoprolol Succinate (Toprol Xl -) 12.5 mg PO DAILY [facility] Last Admin: 02/02/18 10:48 Dose: 12.5 mg Senna (Senna -) 2 tab PO HS [facility] Last Admin: 02/01/18 22:12 Dose: Not Given A/P: 53 year old male with hx of nonobstructive CAD presents with 3 episodes of syncope- cardiology evaluated for further management. Unremarkable workup including echocardiogram, carotid and telemetry without events. MRI negative, EEG pending. Of note, patient states with walking hallways he feels very fatigue and did not pass out but felt lethargic. Given 4 episodes of syncope without prodrome, will evaluate with nuclear stress test on Sunday. Please keep NPO on Sunday evening for stress test on Sunday. Osmany Burks MD
--- NOTE | 2018-02-02 15:54 | PN ---
Progress Note, Physician History of Present Illness: events noted and chart reviewed No episode of syncope and near-syncope patient's at the bedside Patient complains of right arm numbness which is old. Patient was evaluated by cardiology patient still for stress test MRI of the brain revealed no evidence of acute pathology. - Current Medication List Current Medications: Active Medications Acetaminophen (Tylenol -) 650 mg PO Q6H PRN PRN Reason: FEVER Last Admin: 01/31/18 22:51 Dose: 650 mg Docusate Sodium (Colace -) 100 mg PO BID [facility] Last Admin: 02/02/18 10:48 Dose: 100 mg Heparin Sodium (Porcine) (Heparin -) 5,000 unit SQ BID [facility] Last Admin: 02/02/18 10:49 Dose: 5,000 unit Metoprolol Succinate (Toprol Xl -) 12.5 mg PO DAILY [facility] Last Admin: 02/02/18 10:48 Dose: 12.5 mg Senna (Senna -) 2 tab PO HS [facility] Last Admin: 02/01/18 22:12 Dose: Not Given - Objective Vital Signs: Vital Signs Temperature 97.9 F 02/02/18 14:00 Pulse Rate 63 02/02/18 14:00 Respiratory Rate 20 02/02/18 14:00 Blood Pressure 128/67 02/02/18 14:00 O2 Sat by Pulse Oximetry (%) 98 02/02/18 09:00 Constitutional: Yes: Well Nourished Eyes: Yes: WNL HENT: Yes: WNL Neurological: Yes: Alert, Oriented, Babinski negative ...Motor Strength: WNL Labs: CBC, BMP 02/02/18 06:30 02/02/18 06:30 Problem List - Problems (1) Syncope Assessment/Plan: vasovagal syncope associated with vomiting the day of the syncope Rule out cardiac arrhythmia EEG is negative MRI with no stroke 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 Follow-up with cardiology regarding the stress test Code(s): R55 - SYNCOPE AND COLLAPSE Qualifiers: Syncope type: unspecified Qualified Code(s): R55 - Syncope and collapse
--- NOTE | 2018-02-02 16:52 | PN ---
Physical Exam: SUBJECTIVE: Patient seen and examined at the bedside. Ambulating the hallways. wants to go home. discussed importance of completing workup. will need stress test in a.m. OBJECTIVE: Vital Signs Period Temp Pulse Resp BP Sys/Baird Pulse Ox Last 24 Hr 97.7 F-98.8 F 61-74 16-20 103-132/56-73 98-98 GENERAL: The patient is awake, alert, and fully oriented, in no acute distress. HEAD: Normal with no signs of trauma. EYES: PERRL, extraocular movements intact, sclera anicteric, conjunctiva clear. No ptosis. ENT: Ears normal, nares patent, oropharynx clear without exudates, moist mucous membranes. NECK: Trachea midline, full range of motion, supple. LUNGS: Breath sounds equal, clear to auscultation bilaterally, no wheezes, no crackles HEART: Regular rate and rhythm, nsr ABDOMEN: Soft, nontender, nondistended, normoactive bowel sounds EXTREMITIES: 2+ pulses, warm, well-perfused, no edema. NEUROLOGICAL:Normal speech, gait not observed. PSYCH: Normal mood, normal affect. SKIN: Warm, dry, normal turgor, no rashes or lesions noted Laboratory Results - last 24 hr 02/01/18 02/02/18 02/02/18 05:30 06:30 06:30 WBC 6.3 RBC 4.60 Hgb 14.2 Hct 39.8 MCV 86.5 MCH 30.9 MCHC 35.7 RDW 14.0 Plt Count 211 MPV 8.5 Absolute Neuts (auto) 3.3 Neutrophils % 52.9 Lymphocytes % 34.9 D Monocytes % 7.3 Eosinophils % 4.2 D Basophils % 0.7 Nucleated RBC % 0 Sodium 142 Potassium 3.9 Chloride 107 Carbon Dioxide 27 Anion Gap 8 BUN 15 Creatinine 0.9 Creat Clearance w eGFR > 60 Random Glucose 86 Calcium 7.9 L Magnesium 2.1 Total Bilirubin 0.3 AST 22 ALT 44 Alkaline Phosphatase 63 Total Protein 5.9 L Albumin 3.5 Lyme Screen IgG & IgM <0.91 Lyme IgM Quantitation <0.80 Active Medications Generic Name Dose Route Start Last Admin Trade Name Freq PRN Reason Stop Dose Admin Acetaminophen 650 mg 01/31/18 19:44 01/31/18 22:51 Tylenol - PO 650 mg Q6H PRN Administration FEVER Docusate Sodium 100 mg 01/31/18 22:00 02/02/18 10:48 Colace - PO 100 mg BID JOHNSON Administration Heparin Sodium (Porcine) 5,000 unit 01/31/18 22:00 02/02/18 10:49 Heparin - SQ 5,000 unit BID JOHNSON Administration Metoprolol Succinate 12.5 mg 02/01/18 10:00 02/02/18 10:48 Toprol Xl - PO 12.5 mg DAILY JOHNSON Administration Senna 2 tab 01/31/18 22:00 02/01/18 22:12 Senna - PO Not Given HS JOHNSON ASSESSMENT/PLAN: Patient is a 53 year old male, with a significant PMH of aortic aneurysm, spinal stenosis s/p laminectomy and 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 He presents to the ED on 01/31/2018 after he experienced three syncopal episodes at home with LOC loss. He also had another syncopal episode in the ED when speaking with his family, pt noted to have a syncopal episode in the hospital bed by ER staff. In ED his EKG was nonischemic, troponin was negative and a CTA of his chest abdomen pelvis demonstrates no acute or active dissection or aneurysm. Given multitude of syncopal events without clear vagal etiology observe for cardiac and neuro consultation, to determine further management. imaging done between 01/31-02/01/2018: echo: mild mr, mild aortic dilatation carotid doppler: negative brain mri: negative EEG: negative (discussed with dr. borges) abd cta: no evidence of aortic dissection or aneurysm. mild dilatation of the main pulm. artery. no evidence of pulm. artery emboli. Neuro: Syncope and collapse Unknown etiology Head ct and brain mri negative troponins negative to date EEG negative Echo shows only mild mr and mild aortic dilatation orthostatics normal No changes on heart monitoring Lymes titers pending hmga1c stable at 5.3 multiple imaging noted above negative for acute process Card: Aortic aneurysm Followed by cardiology outpatient with routine 6 month screenings Patient for stress testing on sunday fen no ivf,tolerating PO monitor electrolytes low salt diet prophy ambulatory full code Visit type - Emergency Visit Emergency Visit: Yes ED Registration Date: 01/31/18 Care time: The patient presented to the Emergency Department on the above date and was hospitalized for further evaluation of their emergent condition. - New Patient This patient is new to me today: No - Critical Care Critical Care patient: No - Discharge Referral Referred to [facility] No
[2018-02-02] MEDS: SENNOSIDES 8.6MG TABLET (FP) PO SCH (22:03)
[2018-02-03 07:12] LABS: BASO % 0.6 % (0-2.0); EOS % 4.3 % (0-4.5); HEMATOCRIT 42.3 % (35.4-49); HEMOGLOBIN 14.1 GM/dL (11.7-16.9); LYMPH % 36.7 % (8-40); MCH 29.1 pg (25.7-33.7); MCHC 33.4 g/dl (32.0-35.9); MEAN CELL VOLUME 87.1 fl (80-96); MEAN PLT VOLUME 7.9 fl (7.5-11.1); MONO % 8.5 % (3.8-10.2); NEUT % 49.9 % (42.8-82.8); PLATELET COUNT 195 K/MM3 (134-434); RBC 4.86 M/mm3 (4.00-5.60); RDW 13.5 % (11.9-15.9); WHITE BLOOD COUNT 5.9 K/mm3 (4.0-10.0)
[2018-02-03 07:46] LABS: ALBUMIN 3.5 g/dl (3.4-5.0); ALK PHOS 54 U/L (45-117); ANION GAP 6 MMOL/L (8-16); BILIRUBIN,TOTAL 0.6 mg/dL (0.2-1); BLOOD UREA NITROGEN 13 mg/dL (7-18); CALCIUM 8.6 mg/dL (8.5-10.1); CHLORIDE 105 mmol/L (98-107); CO2 28 mmol/L (21-32); CREATININE 0.8 mg/dL (0.55-1.3); GLUCOSE,RANDOM 90 mg/dL (74-106); MAGNESIUM 2.1 mg/dL (1.8-2.4); POTASSIUM 3.9 mmol/L (3.5-5.1); SGOT/AST 15 U/L (15-37); SGPT/ALT 38 U/L (13-61); SODIUM 139 mmol/L (136-145); TOT PROT 6.2 g/dl (6.4-8.2)
--- NOTE | 2018-02-03 09:41 | PN ---
Progress Note (short form) - Note Progress Note: Subjective: --No events overnight --Denies any lh, dizziness, chest pain or palpitations Objective: Vital Signs 02/03/18 02/03/18 02:00 06:00 Temperature 97.5 F L 97.6 F Pulse Rate 61 63 Respiratory 18 18 Rate Blood Pressure 115/66 117/62 Gen: well appearing male sitting upright in NAD HEENT: NC/AT. OP Clear, MMM Cardiac: S1/S2 no murmurs Pulm: clear breath sounds bilaterally Ext: WWP. No edema Labs: reviewed. Active Medications Acetaminophen (Tylenol -) 650 mg PO Q6H PRN PRN Reason: FEVER Last Admin: 01/31/18 22:51 Dose: 650 mg Docusate Sodium (Colace -) 100 mg PO BID [facility] Last Admin: 02/02/18 22:04 Dose: 100 mg Heparin Sodium (Porcine) (Heparin -) 5,000 unit SQ BID [facility] Last Admin: 02/02/18 22:03 Dose: 5,000 unit Metoprolol Succinate (Toprol Xl -) 12.5 mg PO DAILY [facility] Last Admin: 02/02/18 10:48 Dose: 12.5 mg Senna (Senna -) 2 tab PO HS [facility] Last Admin: 02/02/18 22:03 Dose: 2 tab Tele review- PVC couplet. A/P: 53 year old male with hx of nonobstructive CAD presents with 4 episodes of syncope- cardiology evaluated for further management. Unremarkable workup including echocardiogram, carotid and telemetry without events. MRI negative, EEG negative. Of note, patient states with walking hallways he feels very fatigue and lethargic. Given 4 episodes of syncope without prodrome, will evaluate with nuclear stress test on Sunday. Please keep NPO on Sunday evening for stress test on Sunday. If negative, consider 14 day event monitor or ILR placement by EP. Osmany Burks MD
[2018-02-03] MEDS: HEPARIN NA (PORCINE) 5,000 UNITS/ML 1ML VIAL SQ SCH ×2 (10:30→22:16)
[2018-02-03] MEDS: DOCUSATE SODIUM 100 MG CAPSULE (FP) PO SCH ×2 (10:30→22:16)
[2018-02-03] MEDS: metoPROLOL SUCCINATE 25 MG TAB.SR.24H (FP) PO SCH (10:30)
--- NOTE | 2018-02-03 10:47 | PN ---
Physical Exam: SUBJECTIVE: Patient seen and examined at the bedside. reports feeling slightly dizzy this morning. denies any other symptoms. OBJECTIVE: npo at midgh for stress test in a.m. Vital Signs Period Temp Pulse Resp BP Sys/Baird Pulse Ox Last 24 Hr 97.4 F-98.0 F 61-72 16-20 115-135/62-87 99 GENERAL: The patient is awake, alert, and fully oriented, in no acute distress. HEAD: Normal with no signs of trauma. EYES: PERRL, extraocular movements intact, sclera anicteric, conjunctiva clear. No ptosis. ENT: Ears normal, nares patent, oropharynx clear without exudates, moist mucous membranes. NECK: Trachea midline, full range of motion, supple. LUNGS: Breath sounds equal, clear to auscultation bilaterally, no wheezes, no crackles HEART: Regular rate and rhythm, nsr ABDOMEN: Soft, nontender, nondistended, normoactive bowel sounds EXTREMITIES: 2+ pulses, warm, well-perfused, no edema. NEUROLOGICAL:Normal speech, gait not observed. PSYCH: Normal mood, normal affect. SKIN: Warm, dry, normal turgor, no rashes or lesions noted Laboratory Results - last 24 hr 02/01/18 02/03/18 02/03/18 05:30 06:15 06:15 WBC 5.9 RBC 4.86 Hgb 14.1 Hct 42.3 MCV 87.1 MCH 29.1 MCHC 33.4 RDW 13.5 Plt Count 195 MPV 7.9 Absolute Neuts (auto) 2.9 Neutrophils % 49.9 Lymphocytes % 36.7 Monocytes % 8.5 Eosinophils % 4.3 Basophils % 0.6 Nucleated RBC % 0 Sodium 139 Potassium 3.9 Chloride 105 Carbon Dioxide 28 Anion Gap 6 L BUN 13 Creatinine 0.8 Creat Clearance w eGFR > 60 Random Glucose 90 Calcium 8.6 Magnesium 2.1 Total Bilirubin 0.6 AST 15 ALT 38 Alkaline Phosphatase 54 Total Protein 6.2 L Albumin 3.5 BERTRAM Screen Negative Lyme Screen IgG & IgM <0.91 Lyme IgM Quantitation <0.80 Active Medications Generic Name Dose Route Start Last Admin Trade Name Freq PRN Reason Stop Dose Admin Acetaminophen 650 mg 01/31/18 19:44 01/31/18 22:51 Tylenol - PO 650 mg Q6H PRN Administration FEVER Docusate Sodium 100 mg 01/31/18 22:00 02/03/18 10:30 Colace - PO 100 mg BID JOHNSON Administration Heparin Sodium (Porcine) 5,000 unit 01/31/18 22:00 02/03/18 10:30 Heparin - SQ 5,000 unit BID JOHNSON Administration Metoprolol Succinate 12.5 mg 02/01/18 10:00 02/03/18 10:30 Toprol Xl - PO 12.5 mg DAILY JOHNSON Administration Senna 2 tab 01/31/18 22:00 02/02/18 22:03 Senna - PO 2 tab HS JOHNSON Administration ASSESSMENT/PLAN: Patient is a 53 year old male, with a significant PMH of aortic aneurysm, spinal stenosis s/p laminectomy and 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 He presents to the ED on 01/31/2018 after he experienced three syncopal episodes at home with LOC loss. He also had another syncopal episode in the ED when speaking with his family, pt noted to have a syncopal episode in the hospital bed by ER staff. imaging done between 01/31-02/01/2018: echo: mild mr, mild aortic dilatation carotid doppler: negative brain mri: negative EEG: negative (discussed with dr. borges) abd cta: no evidence of aortic dissection or aneurysm. mild dilatation of the main pulm. artery. no evidence of pulm. artery emboli. Neuro: Syncope and collapse Unknown etiology Head ct and brain mri negative troponins negative to date EEG negative Echo shows only mild mr and mild aortic dilatation orthostatics normal No changes on heart monitoring Lymes titers pending hmga1c stable at 5.3 multiple imaging noted above negative for acute process Card: Aortic aneurysm Followed by cardiology outpatient with routine 6 month screenings Patient for stress testing on sunday fen no ivf,tolerating PO monitor electrolytes low salt diet prophy ambulatory full code Visit type - Emergency Visit Emergency Visit: Yes ED Registration Date: 01/31/18 Care time: The patient presented to the Emergency Department on the above date and was hospitalized for further evaluation of their emergent condition. - New Patient This patient is new to me today: No - Critical Care Critical Care patient: No - Discharge Referral Referred to [facility] No
[2018-02-03] MEDS: SENNOSIDES 8.6MG TABLET (FP) PO SCH (22:16)
[2018-02-04 09:26] LABS: BASO % 0.9 % (0-2.0); EOS % 4.1 % (0-4.5); HEMATOCRIT 42.9 % (35.4-49); HEMOGLOBIN 14.3 GM/dL (11.7-16.9); LYMPH % 30.4 % (8-40); MCH 29.1 pg (25.7-33.7); MCHC 33.3 g/dl (32.0-35.9); MEAN CELL VOLUME 87.4 fl (80-96); MEAN PLT VOLUME 7.8 fl (7.5-11.1); MONO % 7.9 % (3.8-10.2); NEUT % 56.7 % (42.8-82.8); PLATELET COUNT 207 K/MM3 (134-434); RBC 4.91 M/mm3 (4.00-5.60); RDW 13.6 % (11.9-15.9)
[2018-02-04 10:06] LABS: ALBUMIN 3.4 g/dl (3.4-5.0); ALK PHOS 56 U/L (45-117); ANION GAP 4 MMOL/L (8-16); BILIRUBIN,TOTAL 0.4 mg/dL (0.2-1); BLOOD UREA NITROGEN 16 mg/dL (7-18); CALCIUM 8.5 mg/dL (8.5-10.1); CHLORIDE 106 mmol/L (98-107); CO2 29 mmol/L (21-32); CREATININE 0.9 mg/dL (0.55-1.3); GLUCOSE,RANDOM 88 mg/dL (74-106); MAGNESIUM 2.1 mg/dL (1.8-2.4); POTASSIUM 4.2 mmol/L (3.5-5.1); SGOT/AST 16 U/L (15-37); SGPT/ALT 39 U/L (13-61); SODIUM 140 mmol/L (136-145); TOT PROT 6.2 g/dl (6.4-8.2)
--- NOTE | 2018-02-04 11:13 | PN ---
Progress Note, Physician Chief Complaint: Events noted Not in distress Coverage for Dr. Estevez History of Present Illness: Patient was seen and examined. Awake and alert. Chart was reviewed Denies chest pain, SOB or palpitations - Current Medication List Current Medications: Active Medications Acetaminophen (Tylenol -) 650 mg PO Q6H PRN PRN Reason: FEVER Last Admin: 01/31/18 22:51 Dose: 650 mg Docusate Sodium (Colace -) 100 mg PO BID [facility] Last Admin: 02/03/18 22:16 Dose: 100 mg Heparin Sodium (Porcine) (Heparin -) 5,000 unit SQ BID [facility] Last Admin: 02/03/18 22:16 Dose: 5,000 unit Metoprolol Succinate (Toprol Xl -) 12.5 mg PO DAILY [facility] Last Admin: 02/03/18 10:30 Dose: 12.5 mg Senna (Senna -) 2 tab PO HS [facility] Last Admin: 02/03/18 22:16 Dose: 2 tab - Objective Vital Signs: Vital Signs Temperature 97.9 F 02/04/18 05:00 Pulse Rate 67 02/04/18 05:00 Respiratory Rate 18 02/04/18 05:00 Blood Pressure 113/67 02/04/18 05:00 O2 Sat by Pulse Oximetry (%) 99 02/03/18 21:00 Eyes: Yes: PERRL HENT: Yes: Atraumatic Neck: Yes: Supple Cardiovascular: Yes: Regular Rate and Rhythm Respiratory: Yes: CTA Bilaterally Gastrointestinal: Yes: Normal Bowel Sounds, Soft. No: Tenderness Edema: No Additional Findings/Remarks: - Review of Systems Constitutional: denies: Chills, Fever Cardiovascular: denies: Palpitations. denies: Chest Pain, Shortness of Breath Respiratory: denies: Cough, Hemoptysis, Orthopnea, PND, SOB, SOB on Exertion Gastrointestinal: denies: Abdominal Pain, Melena, Nausea, denies: Rectal Bleeding, Vomiting Genitourinary: denies: Dysuria, Hematuria Musculoskeletal: denies: Back Pain, Joint Pain Neurological: denies: Dizziness. denies: Change in Speech, Headache, Numbness, Parasthesia, Seizure, Syncope Labs: CBC, BMP 02/04/18 08:50 02/04/18 08:50 Problem List - Problems (1) CAD (coronary artery disease) Code(s): I25.10 - ATHSCL HEART DISEASE OF [place] CORONARY ARTERY W/O ANG PCTRS (2) PVC (premature ventricular contraction) Code(s): I49.3 - VENTRICULAR PREMATURE DEPOLARIZATION (3) Syncope Code(s): R55 - SYNCOPE AND COLLAPSE Qualifiers: Syncope type: unspecified Qualified Code(s): R55 - Syncope and collapse Assessment/Plan 1. CAD, non-obstructive, angina 2. Syncope, etiology unclear 3. PVCs PLAN: 1. Nuclear MPI today 2. If above negative, consider ILR as outpatient vs. external MCOT monitor as outpatient 3. Tilt table testing can also be considered 4. Continue Metoprolol for now Further plans are to follow Koby Tariq MD
[2018-02-04] MEDS: metoPROLOL SUCCINATE 25 MG TAB.SR.24H (FP) PO SCH (13:57)
[2018-02-04] MEDS: HEPARIN NA (PORCINE) 5,000 UNITS/ML 1ML VIAL SQ SCH (13:58)
[2018-02-04] MEDS: DOCUSATE SODIUM 100 MG CAPSULE (FP) PO SCH (13:59)
[2018-02-04 15:02] VITALS: TEMP 98
[2018-02-04 16:59] VITALS: BP 116/70; PULSE 60
--- NOTE | 2018-02-04 17:04 | DS ---
Physical Exam: SUBJECTIVE: Patient seen and examined. at bedside. Patient to be discharged home with close follow up with his pattern technician. OBJECTIVE: stress test with small area of ischemia, discussed with patient follow up with Dr. Estevez outpatient Started on Lipitor Vital Signs Period Temp Pulse Resp BP Sys/Baird Pulse Ox Last 24 Hr 97.8 F-98.1 F 60-68 17-18 113-124/60-76 99-99 PHYSICAL EXAM GENERAL: The patient is awake, alert, and fully oriented, in no acute distress. HEAD: Normal with no signs of trauma. EYES: PERRL, extraocular movements intact, sclera anicteric, conjunctiva clear. No ptosis. ENT: Ears normal, nares patent, oropharynx clear without exudates, moist mucous membranes. NECK: Trachea midline, full range of motion, supple. LUNGS: Breath sounds equal, clear to auscultation bilaterally, no wheezes, no crackles HEART: Regular rate and rhythm, nsr ABDOMEN: Soft, nontender, nondistended, normoactive bowel sounds EXTREMITIES: 2+ pulses, warm, well-perfused, no edema. NEUROLOGICAL:Normal speech, gait not observed. PSYCH: Normal mood, normal affect. SKIN: Warm, dry, normal turgor, no rashes or lesions noted LABS Laboratory Results - last 24 hr 02/04/18 02/04/18 08:50 08:50 WBC 6.0 RBC 4.91 Hgb 14.3 Hct 42.9 MCV 87.4 MCH 29.1 MCHC 33.3 RDW 13.6 Plt Count 207 MPV 7.8 Absolute Neuts (auto) 3.4 Neutrophils % 56.7 Lymphocytes % 30.4 Monocytes % 7.9 Eosinophils % 4.1 Basophils % 0.9 Nucleated RBC % 0 Sodium 140 Potassium 4.2 Chloride 106 Carbon Dioxide 29 Anion Gap 4 L BUN 16 Creatinine 0.9 Creat Clearance w eGFR > 60 Random Glucose 88 Calcium 8.5 Magnesium 2.1 Total Bilirubin 0.4 AST 16 ALT 39 Alkaline Phosphatase 56 Total Protein 6.2 L Albumin 3.4 HOSPITAL COURSE: Patient is a 53 year old male, with a significant PMH of aortic aneurysm, spinal stenosis s/p laminectomy and 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 He presents to the ED on 01/31/2018 after he experienced three syncopal episodes at home with LOC loss. He also had another syncopal episode in the ED. imaging done between 01/31-02/04/2018: echo: mild mr, mild aortic dilatation carotid doppler: negative brain mri: negative EEG: negative (discussed with dr. borges) abd cta: no evidence of aortic dissection or aneurysm. mild dilatation of the main pulm. artery. no evidence of pulm. artery emboli. stress test: small zone of apical reversible defect compatible with mild intensity ischemia. small zone of inferior fixed defect from base to mild cavity compatible with diaphramatic attenuation. low normal lv ef @ 53% Neuro: Syncope and collapse Unknown etiology Head ct and brain mri negative troponins negative to date EEG negative Echo shows only mild mr and mild aortic dilatation orthostatics normal No changes on heart monitoring Lymes titers pending [id number] stable at 5.3 Card: Aortic aneurysm Followed by cardiology outpatient with routine 6 month screenings stress test: small zone of apical reversible defect compatible with mild intensity ischemia. patient to f.u. with his pattern technician within 2 weeks. HLD: Started on Lipitor 20mg daily Date of Admission:01/31/18 Date of Discharge: 02/04/18 Minutes to complete discharge: 60 Discharge Summary Reason For Visit: SYNCOPE Current Active Problems CAD (coronary artery disease) (Acute) PVC (premature ventricular contraction) (Acute) Prophylactic measure (Acute) Syncope (Acute) Condition: Fair - Instructions Diet, Activity, Other Instructions: Mr Helms: You were admitted for syncope. You will be discharge home today and we recommend, that you follow up with Dr. Thacker. Please return to the ED if your symptoms return. Please call me with any questions that you may have. new medications: Lipitor 20mg daily [facility] [phone] Referrals: Brayden Estevez MD [Staff Physician] - 1 Week Disposition: HOME - Home Medications Comprehensive Discharge Medication List: Ambulatory Orders Metoprolol Succinate [Toprol XL -] 25 mg PO DAILY #0 tab.sr.24h 01/25/12 This patient is new to me today: No Emergency Visit: Yes ED Registration Date: 01/31/18 Care time: The patient presented to the Emergency Department on the above date and was hospitalized for further evaluation of their emergent condition. Critical Care patient: No - Discharge Referral Referred to [facility] No
[2018-02-04] MEDS ORDERED: ATORVASTATIN CA 20 MG TABLET (FP) PO ONE (17:15)
[2018-02-04] MEDS ORDERED: ATORVASTATIN CA 20 MG TABLET (FP) PO SCH (22:00)
[2018-02-05] MEDS ORDERED: ASPIRIN COATED 81 MG TABLET.EC PO SCH (10:00)
== END 2018-02-04 18:33 | disposition home or self-care (01) | DRG 312 ==
LOC: JER 11:23 → JERBED 15:17 → OBSVTOIN 15:17 → J4W 22:27
PROVIDERS: ADMIT Internal Medicine; ATTEND Nurse Practitioner Family
DX: R55 Syncope and collapse (principal); E78.5 Hyperlipidemia, unspecified; I71.9 Aortic aneurysm of unspecified site, without rupture; I49.3 Ventricular premature depolarization; I25.119 Atherosclerotic heart disease of native coronary artery with unspecified angina pectoris
CPT/HCPCS: 36415; 70450-TC; 70551-TC; 71045-TC-FY; 71275-TC; 74175-TC; 78452-TC; 80048; 80053; 80061; 82550; 82962; 83036; 83721; 83735; 84436; 84439; 84443; 84484; 85025; 86038; 86431; 86618; 93005; 93010; 93017; 93306-TC; 93880-TC; 95816; 99285-25; A9502; J1644; J7030